=== PATIENT | female | born 1965 | race Caucasian/White ===

== ENCOUNTER → 2019-07-25 15:48 | Outpatient (CLI) | payer OTHER, SELFPAY ==
--- NOTE | ~2019-07-25 | MM_ITS ---
EXAMINATION: MM screening [facility] BI w tierra HISTORY: Screening mammogram TECHNIQUE: Craniocaudal and mediolateral oblique 3-D tomosynthesis images were obtained and synthetic 2-D images were generated. CAD analysis was submitted and interpreted. COMPARISON: 11/13/2017 bilateral digital screening mammogram 12/14/2015, 05/13/2015 complete right breast ultrasound 05/05/2015 bilateral diagnostic digital mammogram BREAST PARENCHYMAL COMPOSITION: There are scattered areas of fibroglandular density. FINDINGS: There is no evidence of suspicious mass, calcification, or architectural distortion to sugg est malignancy in either breast. There has been no suspicious interval change. IMPRESSION: 1. No mammographic evidence of malignancy. 2. Recommend routine screening mammography in one year. BI-RADS Category 1: Negative Reviewed, dictated and finalized at location A.
== END ==
PROVIDERS: PCP Internal Medicine; Visit Provider Obstetrics & Gynecology
DX: Z12.31 Encounter for screening mammogram for malignant neoplasm of breast (principal)
CPT/HCPCS: 77063; 77067

== ENCOUNTER 2020-01-02 13:01 | Emergency (ER) | payer OTHER, SELFPAY ==
[2020-01-02 13:20] VITALS: BP 144/82; PULSE 72; RESP 20; TEMP 36.9; O2SAT 99
--- NOTE | 2020-01-02 13:22 | ED.WOUNDLAC ---
HPI - Wound/Laceration General Chief Complaint: Wound/Laceration Stated Complaint: laceration Time Seen by Provider: 01/02/20 13:20 Source: patient Mode of arrival: ambulatory Limitations: no limitations History of Present Illness HPI narrative: Terrie Andre is a 54 yo female with PNH of hypertension, high cholesterol, with a laceration to distal L 5th finger, palmar side, just before arrival. No pain, some active bleeding. Patient also needs a tetanus vaccine Related Data Home Medications Medication Instructions Recorded Confirmed amlodipine 2.5 mg PO DAILY 01/02/20 01/02/20 ezetimibe 10 mg PO DAILY 01/02/20 01/02/20 montelukast 10 mg PO DAILY 01/02/20 01/02/20 Allergies Allergy/AdvReac Type Severity Reaction Status Date / Time erythromycin base Allergy Unknown RASH Verified 01/02/20 13:22 Sulfa (Sulfonamide Allergy Unknown Unknown Verified 01/02/20 13:22 Antibiotics) tetracycline Allergy Unknown RASH Verified 01/02/20 13:22 Review of Systems Review of Systems: Narrative: CONSTITUTIONAL: Denies fever, chills, sweats. EYES: Denies visual changes, redness, discharge. ENT: Denies rhinorrhea, congestion, sore throat, otalgia. CARDIOVASCULAR: Denies chest pain, palpitations, edema. RESPIRATORY: Denies dyspnea, wheezing, cough GASTROINTESTINAL: Denies abdominal pain, nausea, vomiting, diarrhea. GENITOURINARY: Denies dysuria, hematuria, abnormal discharge SKIN: Denies rash or itching. NEUROLOGIC: Denies numbness, or focal weakness. PSYCHIATRIC: Denies anxiety or depression. Laceration to fifth left finger PMFSH Past Medical History Medical History High cholesterol Hypertension Family History Family History Mother Diabetes mellitus Family history of hypercholesterolemia Hypertension Family history of malignant neoplasm of cervix Grandparent Diabetes mellitus Carcinoma of colon Sibling Family history of hypercholesterolemia Hypertension Other Family history of malignant neoplasm of breast Social History Social History Smoking status: Former smoker Smoking end date: 04/16/94 Alcohol intake: current Substance use type: marijuana Comments At time of signature, I agree with nursing past medical, surgical, social and family history. There is no relevant family history pertinent to the presenting complaint. Pt is here for injury- BP is elevated - will follow up with PCP Exam Narrative: Exam Narrative: GENERAL: This is a well-nourished, well-developed patient, in mild distress. HEAD: normocephalic, atraumatic. EYES: Sclera clear/white. Vision is grossly intact. EARS: External ears normal, Hearing grossly intact. NOSE: External nose normal without nasal discharge, nares without redness, no rhinorrhea. THROAT: Mucous membranes moist, NECK: Neck supple, CARDIOVASCULAR: Regular rate and rhythm without murmurs, gallops, or rubs. RESPIRATORY: Clear to auscultation. Breath sounds equal bilaterally. No wheezes, rales, or rhonchi. GASTROINTESTINAL: Abdomen soft, non-tender, SKIN: warm, intact with no suspicious lesions or rash, good texture and turgor. Serration above ENT about 2 cm in length of the left fifth finger on palmar side, moderate bleeding NEURO: awake, alert, and oriented to person, place and time. There were no obvious focal neurologic abnormalities. Steady gait EXTREMITIES: Normal range of motion. BACK: Nontender without deformity Course Course Emergency Course: Laceration repair Given tetanus because it is been longer than 5 years since last tetanus shot Cleaned and sutured given directions on care of wound Remove sutures in 7 days Vital Signs Vital signs: Vital Signs Temperature 98.4 F 01/02/20 13:20 Pulse Rate 72 01/02/20 13:20 Respiratory Rate 20 01/02/20 13:20 Blood Pressure 144/82 H
[2020-01-02] MEDS: TETANUS,DIPHTHERIA,AC PERTUSSIS ADULT (0.5 ML) BOOSTRIX IM (13:37)
== END 2020-01-02 14:00 | disposition home or self-care (01) ==
PROVIDERS: Emergency Provider Nurse Practitioner; PCP Internal Medicine
DX: S61.217A Laceration without foreign body of left little finger without damage to nail, initial encounter (principal); X58.XXXA Exposure to other specified factors, initial encounter; Z23 Encounter for immunization; Z87.891 Personal history of nicotine dependence; E78.00 Pure hypercholesterolemia, unspecified; I10 Essential (primary) hypertension
CPT/HCPCS: 12001; 90471; 90715; 99212; G0463

== ENCOUNTER → 2023-01-31 14:19 | Outpatient (CLI) | payer OTHER, SELFPAY ==
--- NOTE | ~2023-01-31 | MM_ITS ---
EXAMINATION: MM screening [facility] BI w tierra HISTORY: Screening TECHNIQUE: Craniocaudal and mediolateral oblique 3-D tomosynthesis images were obtained and synthetic 2-D images were generated. CAD analysis was submitted and interpreted. COMPARISON: Comparison to multiple prior studies sequentially, with oldest reviewed study dated 01/15. BREAST PARENCHYMAL COMPOSITION: There are scattered areas of fibroglandular density. FINDINGS: There is no evidence of suspicious mass, calcification, or architectural distortion to sugg est malignancy in either breast. There has been no suspicious interval change. IMPRESSION: 1. No mammographic evidence of malignancy. 2. Recommend routine screening mammography in one year. BI-RADS Category 1: Negative Reviewed, dictated and finalized at location A.
== END ==
PROVIDERS: PCP Internal Medicine; Visit Provider Obstetrics & Gynecology
DX: Z12.31 Encounter for screening mammogram for malignant neoplasm of breast (principal)
CPT/HCPCS: 77063; 77067

== ENCOUNTER 2024-07-18 00:49 | Day surgery (SDC) | payer OTHER, SELFPAY ==
[2024-07-14 09:16] VITALS: BMI 22.8
--- NOTE | 2024-07-17 13:52 | P.PNAN_ITS ---
Anes - Initial Pre Proc Eval Procedure: Operation Date: 07/18/24 11:00 Proposed Procedures p Screening Colonoscopy - Morgan Fierro MD Date/Time: 07/17/24 13:52 Surgeon: Morgan Fierro MD Pre Op Diagnosis: Screening Patient Data Age: 59 Gender: F Height: 1.7 m Weight: 66 kg Allergies Allergy/AdvReac Type Severity Reaction Status Date / Time ezetimibe Allergy Intermediate hives Verified 07/18/24 09:32 erythromycin base Allergy Unknown RASH Verified 07/18/24 09:32 Sulfa (Sulfonamide Allergy Unknown Unknown Verified 07/18/24 09:32 Antibiotics) tetracycline Allergy Unknown RASH Verified 07/18/24 09:32 Home Medications ?Medication ?Instructions ?Recorded ?Confirmed ?Type No Home Medications 02/13/24 07/14/24 History Patient hx anesthesia problems: none Family hx anesthesia problems: none Results Review: All pre-operative results and documents have been reviewed as part of the pre- operative evaluation. [facility] Past Medical History Medical History (Updated 07/17/24 @ 13:52 by Adam Yip DO) IBS (irritable bowel syndrome) Chronic rhinitis High cholesterol Surgical History Surgical History (Updated 02/13/24 @ 17:24 by Lexi Mclaughlin MD) Hx of appendectomy H/O: hysterectomy Family History Family History Mother Diabetes mellitus Family history of hypercholesterolemia Hypertension Family history of malignant neoplasm of cervix Grandparent Diabetes mellitus Carcinoma of colon Sibling Family history of hypercholesterolemia Hypertension Other Family history of malignant neoplasm of breast Social History Social History (Updated 02/13/24 @ 16:44 by Rainer Dunn MA) Years smoked: 1 Smoking status: Former smoker Tobacco type: e-cigarettes/vaping Smoking end date: 04/16/94 Alcohol intake: never Alcohol use details: socially Substance use: current Substance use type: marijuana Do You Feel Safe in your Home?: Yes Lack of Transportation: No Lack of Food: Never True Current Housing: I Have Housing Concerned About Future Housing: No Difficulty Paying Gas/Electric Bills: No Difficulty Paying for Meds: No Currently Unemployed: No Education: High School Diploma/GED Difficulty w/ Childcare or Family Care: No Living arrangements: with family Occupation/Education: occupation 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[employer] Gender identity (if verbalized by the patient): Female Sexual Orientation (if Verbalized by the Patient): Straight or Heterosexual Spiritual care concerns: No Anes - Eval Final PreProcedure Day of Procedure 07/17/24 13:52 Patient weight: normal Heart: regular rate and rhythm Lungs: clear to auscultation and normal air movement Airway: Mallampati scale class II Neurological: alert and oriented Last oral intake: >/= 8 hours ASA classification: II Emergent: no Anesthetic plan: proceed Anesthesia type and monitoring: general GIVS and standard monitoring Results Review: All pre-operative results and documents have been reviewed as part of the pre- operative evaluation. Informed Consent: The patient's anesthetic plan and its attendant risks and benefits were discus sed with the patient/family/POA. Questions were solicited and answers provided to the satisfaction of the patient/family/POA.
--- OUTSIDE RECORDS SUMMARY | 2024-07-18 00:52 | XMS_ITS | Clinical Summary ---
Author Organization [facility] Address [address] [place] [address] Phone Care Team Providers Care English Language Arts Teacher Name Role Phone Abbey Lewis MD Primary Care Provider Allergies No known active allergies Medications IBUPROFEN ORALIndications: Abnormal mammogram Take by mouth. Active Active Problems Patient Care Coordination No te Formatting of this note migh t be different from the original. Primary Care: No primary provider on file. Referring Provider: Pura Ga [address] [place] [address] [address] [place] [address] Other: Problem Noted Date Diagnosed Date Abnormal mammogram 11/28/2010 IBS (irritable bowel syndrome) Family History Medical History Relation Name Comments Breast Cancer Maternal Aunt Colon Cancer Maternal Grandmother Cancer Neg Hx Ovarian Cancer Neg Hx Relation Name Status Comments Maternal Aunt Maternal Grandmother Social History Tobacco Use Types Packs/Day Years Used Date Smoking Tobacco: Former Smokeless Tobacco: Never Alcohol Use Standard Drinks/Week Comments Yes 0 (1 standard drink = 0.6 oz pur e alcohol) rare Comments No Sex and Gender Information Value Date Recorded Sex Assigned at Not on file 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 Gender Identity Not on file Sexual Orientation Not on file Last Filed Vital Signs Vital Sign Reading Time Taken Comments Blood Pressure 106/74 06/20/2011 2:01 PM SALES AND MARKETING AGENT Pulse - - Temperature - - Respiratory Rate - - Oxygen Saturation - - Inhaled Oxygen Concentration - - Weight 73.9 kg (163 lb) 11/28/2010 1:57 PM CDT Height 170.2 cm (5' 7 ) 06/20/2011 2:01 PM SALES AND MARKETING AGENT Body Mass Index 25.53 11/28/2010 1:57 PM CDT Plan of Treatment Health Maintenance Due Date Last Done Comments DTAP/TDAP/TD VACCINES (1 - Tdap) 1986 HEPATITIS B VACCINES (1 of 3 - 19+ 3-dose series) 1986 HPV/Cotest (21-29) 1988 PAP SMEAR 1988 CERVICAL CANCER SCREENING 1997 HPV/Cotest (30-65) 1997 PAP SMEAR 1997 BREAST CANCER SCREENING 11/25/2011 11/25/19 11, 11/11/2010, 02/12/2008 COLORECTAL SCREENING 2012 Colorectal Cancer Screening 2012 FIT-DNA Q 3 years 2012 FIT/FOBT Q 1 year 2012 Flex Sig/CT Colonography Q 5 years 2012 ZOSTER VACCINE (1 of 2) 2017 INFLUENZA VACCINE (#1) 2023 PNEUMOCOCCAL VACCINE 0-49 YEARS Aged Out No longer eligible b ased on patient's age to complete this topic Procedures Procedure Name Priority Date/Time Associated Diagnosis Comments MAMMO DIAGNOSTIC UNI LEFT W OR WO CAD Routine 11/24/2010 from Last 3 Months or Most Recently Relevant to Health Maintenance Results * MAMMO DIGITAL DIAG UNI LEFT (11/24/2010) Anatomical Region Laterality Modality Breast Left Other Pura Ga MD MAMMO ORDERABLES Final R esult from Last 3 Months or Most Recently Relevant to Health Maintenance Care Teams English Language Arts Teacher Relationship Specialty Start Date End Date Abbey Lewis MD [address] [place] [address] PCP - General Family Practice 06/19/11
--- OUTSIDE RECORDS SUMMARY | 2024-07-18 00:52 | XMS_ITS | Clinical Summary ---
Author Organization [facility] [place] [address] Address [address] [place] [address] Care Team Providers Care Back Tender Insulation Board Name Role Phone Ac Isaac MD Primary Care Provider [phone] Allergies Active Allergy Reactions Criticality Noted Date Comments Atorvastatin Itching,Cough,Flushi ng (skin) Medium 10/21/2018 Sulfa (Sulfonamide Antibiotics) Hives Medium 06/07/2017 Medications montelukast (SINGULAIR) 10 mg tablet Take 10 mg by mouth daily. 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 Dizziness 07/16/2017 Stable angina 06/07/2017 Abnormal stress test 06/07/2017 Chronic fatigue 06/07/2017 Family history of premature CAD 06/07/2017 GAMEZ (dyspnea on exertion) 06/07/2017 Tobacco abuse 06/07/2017 Surgical History Surgery Date Site/Laterality Comments APPENDECTOMY HYSTERECTOMY OOPHORECTOMY Medical History Medical History Date Comments Heart murmur Diverticulitis Family History Medical History Relation Name Comments Heart attack Father Diabetes Mother Relation Name Status Comments Brother Alive Father (Age 34) Mother Alive Social History Tobacco Use Types Packs/Day Years Used Date Smoking Tobacco: Never Smokeless Tobacco: Never Alcohol Use Standard Drinks/Week Comments No 0 (1 standard drink = 0.6 oz pur e alcohol) Personal Safety Answer Date Recorded Getting School Help Needed Not on file 06/29 Comments Unknown Sex and Gender Information Value Date Recorded Sex Assigned at Not on file 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 Gender Identity Not on file Sexual Orientation Not on file Obstetrics History Last Filed Vital Signs Vital Sign Reading Time Taken Comments Blood Pressure 112/66 11/03/2019 9:09 AM CDT Pulse 91 11/03/2019 9:09 AM CDT Temperature - - Respiratory Rate - - Oxygen Saturation 98% 11/03/2019 9:09 AM CDT Inhaled Oxygen Concentration - - Weight 76.2 kg (168 lb) 11/03/2019 9:09 AM CDT Height 171.5 cm (5' 7.5 ) 11/03/2019 9:09 AM CDT Body Mass Index 25.92 11/03/2019 9:09 AM CDT Plan of Treatment Not on file Insurance [facility]PPO Address: [facility] [address] [place] [address] Care Teams Back Tender Insulation Board Relationship Specialty Start Date End Date Ac Isaac MD [phone] (work) PCP - General Internal Medicine 06/06/17
--- OUTSIDE RECORDS SUMMARY | 2024-07-18 00:53 | XMS_ITS | Data Portability ---
Author Organization [facility] [place] Address [address] [place] [address] Care Team Providers Care Lvn Name Role Phone MARTINEZ DYAN Primary Care Provider Assessment Encounter Date Assessment Date Assessment LastModified by Organization Details LastModified Time 05/14/2024 05/14/2024 adult health exjohanna seay Blood work. Obtain old records. Find out where she is on screenings and immunizations. Medrol Dosepak usually works for her back we will prescribe that. There is a vague history of some rheumatological issues she did see Dr. Edge at [facility] she was told at 1 time that she may have a connective tissue disease we will see me in 6 months sooner if her back does not get better. Advised to stay up-to-date on screenings and immunizations [id number] Not available 05/17/2024 22:13:54 Plan of Treatment Reminders Order Date Submit Date Provider Last Modified By Organization Details Last Modified Time Details Appointments ANY 15 2024 09:15A Rashmi Isaac MD Not available Not available Not available Lab CBC w/ auto diff 2024 025 [facility], [address] [place] [address], [id number], 05/31/2024 11:11:58 lipid panel, serum 2024 025 [facility], [address] [place] [address], [id number], 05/31/2024 11:11:57 CMP, serum or plasma 2024 025 [facility], [address] [place] [address] 2, [place], [address], 05/31/2024 11:11:56 Referral None recorded. Procedures colonosco py screening (PROC) 2024 025 [facility], [address], [address], [place], [address], 07/15/2024 10:19:47 Surgeries None recorded. Imaging None recorded. Medication Orders Medrol (Vinicio) 4 mg tablets in a dose pack 2024 025 [id number], [address], [place], [place], [id number], 05/16/2024 10:36:55 Patient TargetsNo targets recorded. Patient InstructionsNo instructions recorded. Reason for Referral None Reported. Results Created Date Observation Date Name Description Value Unit Range Abnormal Flag Note LastModifiedBy Organization Detail LastModifiedTime 05/30/1905/31/2024 CMP14 glucose 79 mg/dL 70-99 Not Availabl e [facility] ([facility]) [address] [place], [address], 05/31/2024 11:11:56 05/30/1905/31/2024 CMP14 BUN 11 mg/dL 6-24 Not Available [facility] ([facility]) [address] [place], [address], 05/31/2024 11:11:56 05/30/1905/31/2024 CMP14 creatinine 0.84 mg/dL 0.57-1 .00 Not Available [facility] ([facility]) [address] [place], [address], 05/31/2024 11:11:56 05/30/1905/31/2024 CMP14 eGFR 81 mL/mi n/1.7 3 >59 Not Available [facility] ([facility]) [address] [place], [address], 05/31/2024 11:11:56 05/30/19 25 05/31/2024 CMP14 BUN/creatini ne ratio 13 9-23 Not Available [facility] ([facility]) [address] [facility] [place], [address], 05/31/2024 11:11:56 05/30/19 25 05/31/2024 CMP14 sodium 139 mmol/ L 134-14 4 Not Available [facility] ([facility]) [address] [place], [address], 05/31/2024 11:11:56 05/30/19 25 05/31/2024 CMP14 potassium 4.5 mmol/ L 3.5-5. 2 Not Available [facility] ([facility]) [address] [place], [address], 05/31/2024 11:11:56 05/30/19 25 05/31/2024 CMP14 chloride 101 mmol/ L 96-106 Not Available [facility] ([facility]) [address] [place], [address], 05/31/2024 11:11:56 05/30/19 25 05/31/2024 CMP14 carbon dioxide, total 27 mmol/ L 20-29 Not Available [facility] ([facility]) [address] [place], [address], 05/31/2024 11:11:56 05/30/19 25 05/31/2024 CMP14 calcium 9.3 mg/dL 8.7-10 .2 Not Available [facility] ([facility]) [address] [place], [address], 05/31/2024 11:11:56 05/30/19 25 05/31/2024 CMP14 protein, total 6.4 g/dL 6.0-8. 5 Not Available [facility] ([facility]) [address] [place], [address], 05/31/2024 11:11:56 05/30/19 25 05/31/2024 CMP14 albumin 4.2 g/dL 3.8-4. 9 Not Available [facility] ([facility]) [address] [place], [address], 05/31/2024 11:11:56 05/30/19 25 05/31/2024 CMP14 globulin, total 2.2 g/dL 1.5-4. 5 Not Available [facility] ([facility]) [address] [place], [address], 05/31/2024 11:11:56 05/30/19 25 05/31/2024 CMP14 bilirubin, total 0.3 mg/dL 0.0-1. 2 Not Available [facility] ([facility]) [address] [place], [address], 05/31/2024 11:11:56 05/30/19 25 05/31/2024 CMP14 alkaline phosphatase 81 IU/L 44-121 Not Available [facility] ([facility]) [address] [place], [address], 05/31/2024 11:11:56 05/30/19 25 05/31/2024 CMP14 AST (SGOT) 14 IU/L 0-40 Not Avail able [facility] ([facility]) [address] [place], [address], 05/31/2024 11:11:56 05/30/19 25 05/31/2024 CMP14 ALT (SGPT) 21 IU/L 0-32 Not Avail able [facility] ([facility]) [address] [place], [address], 05/31/2024 11:11:56 05/30/19 25 05/31/2024 LIPID PANEL cholesterol, total 210 mg/dL 100-19 9 above high normal Not Available [facility] ([facility]) [address] [facility] [place], [address], 05/31/2024 11:11:57 05/30/19 25 05/31/2024 LIPID PANEL triglyceride s 226 mg/dL 0-149 above high normal Not Available [facility] ([facility]) [address] [facility] [place], [address], 05/31/2024 11:11:57 05/30/19 25 05/31/2024 LIPID PANEL HDL cholesterol 37 mg/dL >39 below low normal Not Available [facility] ([facility]) [address] [facility] [place], [address], 05/31/2024 11:11:57 05/30/19 25 05/31/2024 LIPID PANEL VLDL cholesterol yannick 41 mg/dL 5-40 above high normal Not Available [facility] ([facility]) [address] [place], [address], 05/31/2024 11:11:57 05/30/19 25 05/31/2024 LIPID PANEL LDL chol calc ([facility]) 132 mg/dL 0-99 above high normal Not Available [facility] ([facility]) [address] [place], [address], 05/31/2024 11:11:57 05/30/19 25 05/31/2024 CBC WITH DIFFE RENTI AL/PL ATELE T WBC 8.6 x10e3 /uL 3.4-10 .8 Not Available [facility] ([facility]) [address] [place], [address], 05/31/2024 11:11:58 05/30/19 25 05/31/2024 CBC WITH DIFFE RENTI AL/PL ATELE T RBC 3.88 x10e6 /uL 3.77-5 .28 Not Available [facility] ([facility]) [address] [place], [address], 05/31/2024 11:11:58 05/30/19 25 05/31/2024 CBC WITH DIFFE RENTI AL/PL ATELE T hemoglobin 13.4 g/dL 11.1-1 5.9 Not Available [facility] ([facility]) [address] [place], [address], 05/31/2024 11:11:58 05/30/19 25 05/31/2024 CBC WITH DIFFE RENTI AL/PL ATELE T hematocrit 37.9 % 34.0-4 6.6 Not Available [facility] ([facility]) [address] [place], [address], 05/31/2024 11:11:58 05/30/19 25 05/31/2024 CBC WITH DIFFE RENTI AL/PL ATELE T MCV 98 fL 79-97 above high normal Not Available [facility] ([facility]) [address] [place], [address], 05/31/2024 11:11:58 05/30/19 25 05/31/2024 CBC WITH DIFFE RENTI AL/PL ATELE T MCH 34.5 pg 26.6-3 3.0 above high normal Not Available [facility] ([facility]) [address] [place], [address], 05/31/2024 11:11:58 05/30/19 25 05/31/2024 CBC WITH DIFFE RENTI AL/PL ATELE T MCHC 35.4 g/dL 31.5-3 5.7 Not Available [facility] ([facility]) [address] [place], [address], 05/31/2024 11:11:58 05/30/19 25 05/31/2024 CBC WITH DIFFE RENTI AL/PL ATELE T RDW 12.6 % 11.7-1 5.4 Not Available [facility] ([facility]) [address] [place], [address], 05/31/2024 11:11:58 05/30/19 25 05/31/2024 CBC WITH DIFFE RENTI AL/PL ATELE T platelets 330 x10e3 /uL 150-45 0 Not Available [facility] ([facility]) [address] [facility], [place], [address], 05/31/2024 11:11:58 05/30/19 25 05/31/2024 CBC WITH DIFFE RENTI AL/PL ATELE T neutrophils 39 % notest ab. Not Available [facility] ([facility]) [address] [facility], [place], [address], 05/31/2024 11:11:58 05/30/19 25 05/31/2024 CBC WITH DIFFE RENTI AL/PL ATELE T lymphs 49 % notest ab. Not Available [facility] ([facility]) [address] [facility], [place], [address], 05/31/2024 11:11:58 05/30/19 25 05/31/2024 CBC WITH DIFFE RENTI AL/PL ATELE T monocytes 6 % notest ab. Not Available [facility] ([facility]) [address] [place], [address], 05/31/2024 11:11:58 05/30/19 25 05/31/2024 CBC WITH DIFFE RENTI AL/PL ATELE T eos 3 % notest ab. Not Available [facility] ([facility]) [address] [place], [address], 05/31/2024 11:11:58 05/30/19 25 05/31/2024 CBC WITH DIFFE RENTI AL/PL ATELE T basos 1 % notest ab. Not Available [facility] ([facility]) [address] [facility], [place], [address], 05/31/2024 11:11:58 05/30/19 25 05/31/2024 CBC WITH DIFFE RENTI AL/PL ATELE T neutrophils (absolute) 3.4 x10e3 /uL 1.4-7. 0 Not Available [facility] ([facility]) [address] [facility], [place], [address], 05/31/2024 11:11:58 05/30/19 25 05/31/2024 CBC WITH DIFFE RENTI AL/PL ATELE T lymphs (absolute) 4.2 x10e3 /uL 0.7-3. 1 above high normal Not Available [facility] ([facility]) [address] [facility], [place], [address], 05/31/2024 11:11:58 05/30/19 25 05/31/2024 CBC WITH DIFFE RENTI AL/PL ATELE T monocytes(ab solute) 0.5 x10e3 /uL 0.1-0. 9 Not Available [facility] ([facility]) [address] [place], [address], 05/31/2024 11:11:58 05/30/19 25 05/31/2024 CBC WITH DIFFE RENTI AL/PL ATELE T eos (absolute) 0.3 x10e3 /uL 0.0-0. 4 Not Available [facility] ([facility]) [address] [facility], [place], [address], 05/31/2024 11:11:58 05/30/19 25 05/31/2024 CBC WITH DIFFE RENTI AL/PL ATELE T baso (absolute) 0.1 x10e3 /uL 0.0-0. 2 Not Available [facility] ([facility]) [address] [place], [address], 05/31/2024 11:11:58 05/30/19 25 05/31/2024 CBC WITH DIFFE RENTI AL/PL ATELE T immature granulocytes 2 % notest ab. Not Available [facility] ([facility]) [address] [place], [address], 05/31/2024 11:11:58 05/30/19 25 05/31/2024 CBC WITH DIFFE RENTI AL/PL ATELE T immature grans (abs) 0.2 x10e3 /uL 0.0-0. 1 above high normal (An eleva karan perce ntage of Immat ure Granu locyt es has not been found to be clini layne signi fican t as a sole clini yannick predi ctor of disea se. Does NOT inclu de bands or blast cells . Pregn abner assoc iated physi ologi yannick leuko cytos is may also show incre ased immat ure granu locyt es witho ut clini yannick signi fican ce.) Not Available [facility] ([facility]) [address] [facility], [place], [address], 05/31/2024 11:11:58 Result Notes None recorded. Problems Name Problem SNOMED Code Status Onset Date Resolution Date Notes Provider Name and Address Organization Details Recorded Time Low back pain 980393279 Active 2024 PERLA Melvin [facility] 15:22:27 Adult health examination Active 2024 PERLA Melvin [facility] 15:22:28 Problem Notes None recorded. Procedures Surgical History Date Name Laterality Status Provider Name and Address Organization Details Recorded Time Total hysterectomy completed PERLA Burnham [facility] 05/14/2024 13:00:44 Appendectomy completed Missy Tello MA [place] Mac[place] [facility] 05/14/2024 13:00:48 partial hysterectomy completed PERLA Burnham [facility] 05/14/2024 13:01:01 Imaging Results None recorded. Procedure Notes None recorded. Medical Equipment None Reported. Medications Not known to be on any medication Vitals Date Recorded Body height Body mass index (BMI) Body weight Heart rate Oxygen saturation Oxygen saturation in Arterial blood by Pulse oximetry Systolic blood pressure Diastolic blood pressure Provider Name and Address Organization Details Last Updated DateTime 5 170.18 cm 23.3 kg/m2 79745.8 3 g 90 /min 96 % 96 % 130 mm[Hg] 68 mm[Hg] PERLA Burnham [facility] 13:06:24 Social History Question Answer Notes LastModified by Organizat ion Details LastModified Time Tobacco Smoking Status Former Smoker Missy Tello MA null, [place] - [facility] 05/14/2024 12:59:59 Do You Have An Advance Directive? No Information n ot available 05/14/2024 What Is Your Level Of Alcohol Consumption? None Information not available 05/14/2024 Are You Blind Or Do You Have Difficulty Seeing? No Information n ot available 05/14/2024 What Is Your Level Of Caffeine Consumption? Heavy Information not available 05/14/2024 In The 14 Days Before Symptom Onset, Have You Had Close Contact With A Laboratory-confirm ed COVID-19 While That Case Was Ill? No Information n ot available 05/14/2024 In The 14 Days Before Symptom Onset, Have You Had Close Contact With A Person Who Is Under Investigation For COVID-19 While That Person Was Ill? No Information not available 05/14/2024 Have You Been To An Area Known To Be High Risk For COVID-19? No Information not available 05/14/2024 Are You Currently Employed? No Information not available 05/14/2024 Are You Deaf Or Do You Have Serious Difficulty Hearing? No Information not available 05/14/2024 What Type Of Diet Are You Following? REGULAR Information n ot available 05/14/2024 Are There Any Guns Present In Your Home? No Information not available 05/14/2024 What Was The Date Of Your Most Recent Tobacco Screening? 05/14/2024 Information not available 05/14/2024 What Is Your Current Pack Years? 10packyears Information not available 05/14/2024 What Is Your Relationship Status? Information not available 05/14/2024 Do You Use Your Seat Belt Or Car Seat Routinely? Yes Information not available 05/14/2024 Do You Have Smoke And Carbon Monoxide Detectors In Your Home? Yes Information not available 05/14/2024 How Much Tobacco Do You Smoke? 1 PPW Information not available 05/14/2024 Do You Feel Stressed (tense, Restless, Nervous, Or Anxious, Or Unable To Sleep At Night)? [id number] Information not available 05/14/2024 Do You Use Any Illicit Or Recreational Drugs? No Information not available 05/14/2024 Do You Use Sunscreen Routinely? Yes Information not available 05/14/2024 Has Tobacco Cessation Counseling Been Provided? No Information not available 05/14/2024 How Many Years Have You Smoked Tobacco? 10 Information not available 05/14/2024 Do You Or Have You Ever Used Any Other Forms Of Tobacco Or Nicotine? No Information not available 05/14/2024 Sex: Female Functional Status Question Answer Note LastModified by Organization D etails LastModified Time Are you able to care for yourself? Yes Information n ot available 05/14/2024 What is your exercise level? None Information not available 05/14/2024 Mental Status None recorded. Family History Relationship Description Onset Age of this Age Resolved Age Notes LastModified by Organization Details LastModified Time Father Alcohol abuse mebyma Not available 2024 12:56:15 Father Coronary arterioscler osis mebyma Not available 2024 12:56:41 Father Blood coagulation disorder 45 mebyma Not available 2024 12:56:56 Father Myocardial infarction mebyma Not available 05/14 12:59:19 Mother Depressive disorder mebyma Not available 2024 12:57:10 Mother Diabetes mellitus mebyma Not available 2024 12:57:41 Mother Hypercholest erolemia mebyma Not available 2024 12:58:17 Mother Migraine mebyma Not available 0 05/14/2024 12:59:08 Paternal Grandmother Diabetes mellitus mebyma Not available 2024 12:57:41 Paternal Uncle Diabetes mellitus mebyma Not available 2024 12:57:41 Paternal Uncle Diabetes mellitus mebyma Not available 2024 12:57:41 Paternal Uncle Diabetes mellitus mebyma Not available 2024 12:57:41 Paternal Aunt Malignant tumor of breast mebyma Not available 2024 12:58:43 Daughter Migraine mebyma Not available 05/14/2024 12:59:07 Medical History Condition Response Coronary Artery Disease N Atrial Fibrillation N High Blood Pressure N Thyroid Problems N Kidney or Bladder Problems N Depression N COPD N Blood Clots N GI Problems N Have you had a mammogram in the last yea r? N Skin Problems N Anemia N Heart Attack ([place]) N Diabetes N Anxiety Disorder N Muscle, Joint, or Bone Problems Y Seizures/Epilepsy N Have you had a colonoscopy in the last 1 0 years? N Acid Reflux (GERD) N Cancer N Stroke N Allergies N Asthma N High Cholesterol N Hepatitis N Liver Disease N Headaches Y Osteoporosis N Heart Failure N Gynecological HistoryNo gynecological history recorded. Obstetrics History GPAL:G 0 P 0 0 0 0 Past Encounters Encounter ID Performer Location Encounter Start Date Encounter Closed Date Diagnosis/Indication Diagnosis SNOMED-CT Code Diagnosis ICD10 Code Diagnosis Note [id number] Dyan Isaac MD [facility] (Adult Med) [address] [place] [phone] 05/14/2024 12:22:42 05/14/2024 13:30:28 Body mass index 20-24 - normal 668062880 Z68.23 Adult heal th examination 815068101 Z00.00 Low back pain 974826254 M54.50 Screening for malignant neoplasm of colon 701392105 Z12.11 Health Concerns Section Related Observation LastModified by Organization Detai ls LastModified Time None Recorded Concern Status LastModified by Organization Details LastModified Time None Recorded Advance Directives Directive N: Payers Encounter Date Sequence Insurance Name Policy Number Policy Dumont Covered Member ID Dumont Member ID Guarantor Name 05/14/2024 1 [facility] [id number] eTd Call Jes [id number] Terrie Jes Notes Date Note Type Note Provider Name and Address Organization Details Recorded Time 05/14/2024 text/html reestablishing c are back pain flare-up again meds none allergies none surgeries. Hysterectomy with both ovaries taken out appendectomy family history heart disease hypertension diabetes paternal aunt with breast cancer Dyan Isaac MD Attn: Accounting[address] [facility], [place], [address], [facility] 05/17/2024 22:14:18 OBGyn Episode No OBEpisode recorded.
--- OUTSIDE RECORDS SUMMARY | 2024-07-18 00:53 | XMS_ITS | Referral Summary ---
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
[2024-07-18 09:33] VITALS: BP 118/77; PULSE 98; RESP 19; TEMP 37.1; O2SAT 100
[2024-07-18] MEDS: LACTATED RINGERS 1,000 ML 150 ML IV CONT (09:40)
--- NOTE | 2024-07-18 10:08 | PM.IMHP ---
H&P: HPI History of Present Illness Date/Time: 07/18/24 10:08 Chief Complaint: screening colonoscopy Narrative: This is the patient's first colonoscopy after 15 years. There are no GI symptoms and there is no family history of colorectal cancer. Review of Systems Review of Systems: All systems reviewed & are unremarkable except as noted in HPI and below PMFSH Past Medical History Medical History (Updated 07/18/24 @ 10:09 by Morgan Fierro MD) IBS (irritable bowel syndrome) Chronic rhinitis High cholesterol Surgical History Surgical History (Updated 02/13/24 @ 17:24 by Lexi Mclaughlin MD) Hx of appendectomy H/O: hysterectomy Family History Family History Mother Diabetes mellitus Family history of hypercholesterolemia Hypertension Family history of malignant neoplasm of cervix Grandparent Diabetes mellitus Carcinoma of colon Sibling Family history of hypercholesterolemia Hypertension Other Family history of malignant neoplasm of breast Social History Social History (Updated 02/13/24 @ 16:44 by Rainer Dunn MA) Years smoked: 1 Smoking status: Former smoker Tobacco type: e-cigarettes/vaping Smoking end date: 04/16/94 Alcohol intake: never Alcohol use details: socially Substance use: current Substance use type: marijuana Do You Feel Safe in your Home?: Yes Lack of Transportation: No Lack of Food: Never True Current Housing: I Have Housing Concerned About Future Housing: No Difficulty Paying Gas/Electric Bills: No Difficulty Paying for Meds: No Currently Unemployed: No Education: High School Diploma/GED Difficulty w/ Childcare or Family Care: No Living arrangements: with family Occupation/Education: occupation 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 [employer] Gender identity (if verbalized by the patient): Female Sexual Orientation (if Verbalized by the Patient): Straight or Heterosexual Spiritual care concerns: No Meds Home Medications and Allergies Home Medications ?Medication ?Instructions ?Recorded ?Confirmed ?Type No Home Medications 02/13/24 07/14/24 History Allergies Allergy/AdvReac Type Severity Reaction Status Date / Time ezetimibe Allergy Intermediate hives Verified 07/18/24 09:32 erythromycin base Allergy Unknown RASH Verified 07/18/24 09:32 Sulfa (Sulfonamide Allergy Unknown Unknown Verified 07/18/24 09:32 Antibiotics) tetracycline Allergy Unknown RASH Verified 07/18/24 09:32 Vital Signs Vital Signs - 24 hr 07/18/24 09:33 Temperature 98.7 F Pulse Rate 98 Respiratory Rate 19 Blood Pressure 118/77 Pulse Oximetry 100 Oxygen Delivery Room Air Exam Const: General: cooperative and healthy appearing Resp: Effort & Inspection: normal respiratory effort and able to speak in complete sentences Auscultation: clear to auscultation bilaterally Cardio: Rate: regular rate Rhythm: regular rhythm GI: Inspection: normal to inspection GI Palp: No No hepatosplenomegaly present Auscultation: normal bowel sounds Rectal Exam: deferred Skin: General skin exam: normal color Psych: Appearance: grossly normal Mental Status: mental status grossly normal Assessment and Plan Assessment and plan (1) Encounter for screening colonoscopy: Code(s): Z12.11 - Encounter for screening for malignant neoplasm of colon Status: Acute Assessment and Plan: The patient is deemed a good candidate for the procedure. Consent signed. Will proceed.
[2024-07-18 10:32] VITALS: BP 106/61; PULSE 61; RESP 22; O2SAT 100
[2024-07-18 10:42] VITALS: BP 111/69; PULSE 60; RESP 16; O2SAT 100
[2024-07-18 10:52] VITALS: BP 128/81; PULSE 61; RESP 20; O2SAT 100
== END 2024-07-18 11:03 | disposition home or self-care (01) ==
PROVIDERS: PCP Internal Medicine; Referring Provider Internal Medicine; Visit Provider Internal Medicine Gastroenterology
PROC: 0DJD8ZZ Inspection of Lower Intestinal Tract, Via Natural or Artificial Opening Endoscopic (ICD-10-PCS; CPT 45378; principal; 2024-07-18 11:00)
DX: Z12.11 Encounter for screening for malignant neoplasm of colon (principal); K57.30 Diverticulosis of large intestine without perforation or abscess without bleeding; F12.90 Cannabis use, unspecified, uncomplicated; Z87.891 Personal history of nicotine dependence
CPT/HCPCS: 45378; J2704; J7120

== ENCOUNTER 2024-09-02 15:33 | Outpatient (CLI) | payer OTHER, SELFPAY ==
--- NOTE | ~2024-09-02 | CT_ITS ---
CT of the Abdomen and Pelvis: Indication: Abdominal pain Technique: 2.5 mm axial scans were obtained through the abdomen and pelvis following intravenous adm inistration of 100 cc of Omnipaque 350. Dose reduction technique was used on this scan by utilizing a utomated exposure control and iterative reconstruction technique. The dose-length product (DLP) was 3 92.66 mGy-cm. Findings: Scans through the lung bases are unremarkable. The liver, pancreas, gallbladder, adrenals and kidneys are within normal limits. Several splenic cyst s are noted. No evidence of aortic aneurysm. No lymphadenopathy. There is wall thickening of the sigmoid colon with diverticular disease. No definite acute inflammato ry change. Images through the pelvis were performed. Urinary bladder unremarkable. No pelvic mass seen. No ascit es. Impression: Muscular hypertrophy of the sigmoid colon due to underlying diverticulosis versus mild acute sigmoid diverticulitis. Correlate with clinical symptomatology. No obstruction, abscess, or free air. Reviewed, dictated and finalized at location . Impression: Muscular hypertrophy of the sigmoid colon due to underlying diverticulosis vers us mild acute sigmoid diverticulitis. Correlate with clinical symptomatology. N o obstruction, abscess, or free air.
== END 2024-09-02 15:34 | disposition home or self-care (01) ==
LOC: MICIMG 15:34
PROVIDERS: PCP Internal Medicine; Visit Provider Internal Medicine
DX: R10.9 Unspecified abdominal pain (principal); R93.3 Abnormal findings on diagnostic imaging of other parts of digestive tract
CPT/HCPCS: 74177; Q9967

== ENCOUNTER 2024-10-14 15:45 | Outpatient (CLI) | payer OTHER, SELFPAY ==
--- NOTE | ~2024-10-14 | MM_ITS ---
EXAMINATION: MM screening [facility] BI w [facility] HISTORY: Screening mammogram TECHNIQUE: Craniocaudal and mediolateral oblique 3-D tomosynthesis images were obtained and synthetic 2-D images were generated. CAD analysis was submitted and interpreted. COMPARISON: 01/31/2023, 08/25/2020, 07/25/2019 BREAST PARENCHYMAL COMPOSITION:Not Dense. There are scattered areas of fibroglandular density. FINDINGS: No suspicious mass, calcification, or architectural distortion are identified in either delonte ast to suggest malignancy. There has been no suspicious interval change. IMPRESSION: No mammographic evidence of malignancy. Recommend routine screening mammography in one year. BI-RADS Category 1: Negative Reviewed, dictated and finalized at location .
== END 2024-10-14 15:46 | disposition home or self-care (01) ==
PROVIDERS: PCP Obstetrics & Gynecology; Visit Provider Obstetrics & Gynecology
DX: Z12.31 Encounter for screening mammogram for malignant neoplasm of breast (principal)
CPT/HCPCS: 77063; 77067

== ENCOUNTER 2025-01-16 14:30 | Outpatient (CLI) | payer OTHER, SELFPAY ==
--- NOTE | 2025-01-16 | ECHO_ITS ---
Patient Info Name: Terrie Andre Age: 59 years : 1965 Gender: Female Ht: 67 in Wt: 158 lbs BSA: 1.85 m2 HR: 71 bpm BP: 140 / 83 mmHg Heart Rhythm: Sinus Rhythm Technical Quality: Fair Exam Date: 01/16/2025 2:55 PM Patient Status: O Admit Date: 01/16/2025 Exam Type: CA echo doppler color flow Complete two-dimensional, color flow and Doppler transthoracic echocardiogram is performed. Valve Maker: Bri Fuller Attending Provider: Ac Isaac Summary 1. Complete two-dimensional, color flow and Doppler transthoracic echocardiogram is performed. 2. Left ventricular chamber dimension is normal. 3. Left ventricular systolic function is normal, estimated at 65-70. 4. The left ventricular diastolic function is grade I diastolic dysfunction. 5. E/e' 12 is mildly elevated. 6. There is mild aortic valve sclerosis. 7. No pulmonary hypertension, estimated pulmonary arterial systolic pressure is 32 mmHg. Left Ventricle E/e' 12 is mildly elevated. Left ventricular chamber dimension is normal. Left ventricular systolic function is normal, estimated at 65-70. The left ventricular diastolic function is grade I diastolic dysfunction. Right Ventricle Right ventricular chamber dimension is normal. Right ventricular systolic function is normal and with normal TAPSE 2.0 cm. Left Atria Left atrial chamber dimension is normal. Right Atria Right atrial chamber dimension is normal. Aortic Valve The aortic valve is trileaflet. There is mild aortic valve sclerosis. There is no aortic valve stenosis. There is no aortic valve regurgitation. Pulmonic Valve There is no pulmonic regurgitation. Mitral Valve There is no mitral valve stenosis. There is no mitral valve regurgitation. Tricuspid Valve There is no tricuspid valve regurgitation. No pulmonary hypertension, estimated pulmonary arterial systolic pressure is 32 mmHg. Pericardium/Pleural There is no pericardial effusion. Inferior Vena Cava Normal inferior vena cava with >50% collapse upon inspiration consistent with normal right atrial pressure, 5 mmHg. Aorta The aortic root size at the sinus of Valsalva is normal. Left Ventricular Outflow Tract Name Value Normal LVOT 2D LVOT Diameter 2.0 cm LVOT Doppler LVOT Peak Velocity 170 cm/s LVOT Peak Gradient 12 mmHg LVOT Mean Gradient 6 mmHg LVOT VTI 35 cm LVOT VTI/AV VTI Ratio 0.8 LVOT Stroke Volume 105 ml Mitral Valve Name Value Normal MV Diastolic Function MV E Peak Velocity 76 cm/s MV A Peak Velocity 85 cm/s MV E/A 0.9 MV Decel Time (PW) 165 ms Tricuspid Valve Name Value Normal TV Regurgitation Doppler TR Peak Velocity 259 cm/s TR Peak Gradient 12 mmHg Estimated PAP/RSVP RA Pressure 5 mmHg <=5 PA Systolic Pressure 32 mmHg <36 RV Systolic Pressure 32 mmHg <36 Aorta Name Value Normal Ascending Aorta Ao Root Diameter (MM) 2.1 cm Ao Root Diam Index (MM) 1.2 cm/m2 Aortic Valve Name Value Normal AV Doppler AV Peak Velocity 208 cm/s AV Peak Gradient 17 mmHg AV Mean Gradient 9 mmHg AV VTI 43 cm AV Area (Cont Eq VTI) 2.5 cm2 >=3.0 AV Area (Cont Eq Hua) 2.5 cm2 AV DI (Hua) 0.82 AV Regurgitation 2D LVOT Area 3.0 cm2 Ventricles Name Value Normal LV Dimensions 2D/MM IVS Diastolic Thickness (2D) 0.7 cm 0.6-1.0 LVID Diastole (2D) 4.2 cm 3.8-5.2 LVIW Diastolic Thickness (2D) 0.7 cm 0.6-0.9 LVID Systole (2D) 2.4 cm 2.2-3.5 LVOT Diameter 2.0 cm LV Mass (2D Cubed) 88.42 g 67.00-162.00 LV Mass Index (2D Cubed) 48 g/m2 43-95 Relative Wall Thickness (2D) 0.35 <=0.42 LV Fractional Shortening/Ejection Fraction 2D/MM LV Fractional Shortening (2D) 42 % 27-45 LV EF (2D Teichholz) 74 % LV Diastolic Volume (4C MOD) 67 ml LV EF (4C MOD) 72 % LV Diastolic Volume (2C MOD) 70 ml LV EF (2C MOD) 70 % LV Diastolic Volume (BP MOD) 70 ml 46-106 LV Diastolic Volume Index (BP MOD) 38 ml/m2 29-61 LV Systolic Volume (BP MOD) 21 ml 14-42 LV Systolic Volume Index (BP MOD) 11 ml/m2 8-24 LV EF (BP MOD) 71 % 54-74 LV Diastolic Length (4C) 7.4 cm LV Systolic Length (4C) 5.7 cm LV Stroke Volume (4C MOD) 49 ml Atria Name Value Normal LA Dimensions LA Dimension (MM) 3.5 cm 2.7-3.8 LA Volume (4C A-L) 44 ml LA Volume (BP A-L) 51 ml RA Dimensions RA Area (4C) 13.9 cm2 <=18.0 Report Signatures
--- OUTSIDE RECORDS SUMMARY | 2025-01-16 14:33 | XMS_ITS | Clinical Summary ---
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
--- OUTSIDE RECORDS SUMMARY | 2025-01-16 14:33 | XMS_ITS | Clinical Summary ---
Author Organization [facility] Address [address] [place] [address] Phone Care Team Providers Care Railroad Car Cleaning Supervisor Name Role Phone Abbey Lewis MD Primary Care Provider [phone] Allergies No known active allergies Medications IBUPROFEN ORALIndications: Abnormal mammogram Take by mouth. Active Active Problems Patient Care Coordination No te Formatting of this note migh t be different from the original. Primary Care: No primary provider on file. 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 Gender Identity Not on file Sexual Orientation Not on file Last Filed Vital Signs Vital Sign Reading Time Taken Comments Blood Pressure 106/74 06/20/2011 2:01 PM PRODUCE RUNNER Pulse - - Temperature - - Respiratory Rate - - Oxygen Saturation - - Inhaled Oxygen Concentration - - Weight 73.9 kg (163 lb) 11/28/2010 1:57 PM CDT Height 170.2 cm (5' 7) 06/20/2011 2:01 PM PRODUCE RUNNER Body Mass Index 25.53 11/28/2010 1:57 PM CDT Plan of Treatment Health Maintenance Due Date Last Done Comments DTAP/TDAP/TD VACCINES (1 - Tdap) 1986 HEPATITIS B VACCINES (1 of 3 - 19+ 3-dose series) 1986 HPV/Cotest (21-29) 1988 CERVICAL CANCER SCREENING 1997 HPV/Cotest (30-65) 1997 PAP SMEAR 1997 BREAST CANCER SCREENING 11/25/2011 11/25/19 11, 11/11/2010, 02/12/2008 COLORECTAL SCREENING 2012 Colorectal Cancer Screening 2012 FIT-DNA Q 3 years 2012 FIT/FOBT Q 1 year 2012 Flex Sig/CT Colonography Q 5 years 2012 ZOSTER VACCINE (1 of 2) 2017 INFLUENZA VACCINE (#1) 2024 Procedures Procedure Name Priority Date/Time Associated Diagnosis [...] Recently Relevant to Health Maintenance Care Teams Railroad Car Cleaning Supervisor Relationship Specialty Start Date End Date Abbey Lewis MD [address] [place] [id number] PCP - General Family Practice 06/19/11
--- OUTSIDE RECORDS SUMMARY | 2025-01-16 14:33 | XMS_ITS | Encounter Summary ---
Author Organization [facility] Address [address] [place] [id number] Care Team Providers Care Prototype Engineer Manager Name Role Phone Ac Isaac MD Primary Care Provider [phone] Encounter Details Date Type Department Care Team (Late st Contact Info) Description 06/11/2017 Orders Only [facility] Health Information Management [address] [place] [id number] Scanning, Provider Social History Tobacco Use Types Packs/Day Years Used Date Smoking Tobacco: Never Smokeless Tobacco: Never Alcohol Use Standard Drinks/Week Comments No 0 (1 standard drink = 0.6 oz pur e alcohol) Comments Unknown Sex and Gender Information Value Date Recorded Sex Assigned at Not on file 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
--- OUTSIDE RECORDS SUMMARY | 2025-01-16 14:33 | XMS_ITS | Data Portability ---
[facility] Address [address] [place] [address] Care Team Providers [employer] Name Role Phone DYAN ISAAC Primary Care Provider Assessment Encounter Date Assessment Date Assessment LastModified by Organization Details LastModified Time 05/14/2024 05/14/2024 adult health exjohanna seay Blood work. Obtain old records. Find out where she is on screenings and immunizations. Medrol Dosepak usually works for her back we will prescribe that. There is a vague history of some rheumatological issues she did see Dr. Edge at [facility] she was told at 1 time that she may have a connective tissue disease we will see me in 6 months sooner if her back does not get better. Advised to stay up-to-date on screenings and immunizations Not available 05/17/2024 22:13:54 08/14/2024 08/14/2024 We will obtain colonoscopy report send her back to GI get CAT scan and blood work Not available 08/15/2024 21:47:22 12/18/2024 12/18/2024 Obtain her cardiology report echocardiogram to be ordered eating healthy food care instructions follow up 4 month [email or web address] Not available 01/03/2025 17:57:12 Plan of Treatment Reminders Order Date Submit Date Provider Last Modified By Organization Details Last Modified Time Details Appointments ANY 15 2025 03:15P M Dyan Isaac MD Not available Not available Not available Lab CBC w/ auto diff 2024 025 YASMIN [facility], [address], [place], [address], 08/17/2024 09:08:31 CMP, serum or plasma [address] [facility], [address], [place], [address], 08/17/2024 09:08:28 urinalysi s, dipstick, reflex micro [address] [facility], [address], [place], [address], 08/17/2024 09:08:30 CBC w/ auto diff 2024 025 [facility], [address] [place] [address] 2, [place], [address], 05/31/2024 11:11:58 lipid panel, serum 2024 025 [facility], [address] [place] [address], [place], [address], 05/31/2024 11:11:57 CMP, serum or plasma 2024 025 [facility], [address] [place] [address], [place], [address], 05/31/2024 11:11:56 Referral gastroent erologist referral 2024 025 [facility], [address], [address], [place], [address], 10/15/2024 18:59:28 Procedures colonosco py screening (PROC) 2024 025 [facility], [address], [address], [place], [address], 09/10/2024 12:41:02 Surgeries None recorded. Imaging US, echocardi ogram 2024 025 [facility] [address], [place], [address], 01/16/2025 04:22:26 CT, abdomen + pelvis, w/ contrast 2024 025 [facility], [address], [place], [address], 09/05/2024 09:13:42 Medication Orders Medrol (Vinicio) 4 mg tablets in a dose pack 2024 025 [id number], [address], [place], [place], [id number], 05/16/2024 10:36:55 Patient TargetsNo targets recorded. 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 Referring Physician: Dyan Isaac, Internal Medicine, Encounter Date: 08/14/2024 Results Created Date Observation Date Name Description Value Unit Range Abnormal Flag Note LastModifiedBy Organization Detail LastModifiedTime 05/30/1905/31/2024 CMP14 glucose 79 mg/dL 70-99 Not Availabl e [facility] ([facility]) [address] [place], [address], 05/31/2024 11:11:56 05/30/19 25 05/31/2024 CMP14 BUN 11 mg/dL 6-24 Not Available [facility] ([facility]) [address] [place], [address], 05/31/2024 11:11:56 05/30/19 25 05/31/2024 CMP14 creatinine 0.84 mg/dL 0.57-1 .00 Not Available [facility] ([facility]) [address] [place], [address], 05/31/2024 11:11:56 05/30/19 25 05/31/2024 CMP14 eGFR 81 mL/mi n/1.7 3 >59 Not Available [facility] ([facility]) [address] [facility], [place], [address], 05/31/2024 11:11:56 05/30/19 25 05/31/2024 CMP14 BUN/creatini ne ratio 13 9-23 Not Available [facility] ([facility]) [address] [facility], [place], [address], 05/31/2024 11:11:56 05/30/19 25 05/31/2024 CMP14 sodium 139 mmol/ L 134-14 4 Not Available [facility] ([facility]) [address] [place], [address], 05/31/2024 11:11:56 05/30/19 25 05/31/2024 CMP14 potassium 4.5 mmol/ L 3.5-5. 2 Not Available [facility] ([facility]) [address] [place], [address], 05/31/2024 11:11:56 05/30/19 25 05/31/2024 CMP14 chloride 101 mmol/ L 96-106 Not Available [facility] ([facility]) [address] [place], [address], 05/31/2024 11:11:56 05/30/19 25 05/31/2024 CMP14 carbon dioxide, total 27 mmol/ L 20-29 Not Available [facility] ([facility]) [address] [place], [address], 05/31/2024 11:11:56 05/30/19 25 05/31/2024 CMP14 calcium 9.3 mg/dL 8.7-10 .2 Not Available [facility] ([facility]) [address] [place], [address], 05/31/2024 11:11:56 05/30/19 25 05/31/2024 CMP14 protein, total 6.4 g/dL 6.0-8. 5 Not Available [facility] ([facility]) [address] [place], [address], 05/31/2024 11:11:56 05/30/19 25 05/31/2024 CMP14 albumin 4.2 g/dL 3.8-4. 9 Not Available [facility] ([facility]) [address] [place], [address], 05/31/2024 11:11:56 05/30/19 25 05/31/2024 CMP14 globulin, total 2.2 g/dL 1.5-4. 5 Not Available [facility] ([facility]) [address] [place], [address], 05/31/2024 11:11:56 05/30/19 25 05/31/2024 CMP14 bilirubin, total 0.3 mg/dL 0.0-1. 2 Not Available [facility] ([facility]) [address] [place], [address], 05/31/2024 11:11:56 05/30/19 25 05/31/2024 CMP14 alkaline phosphatase 81 IU/L 44-121 Not Available [facility]) [address] [place], [address], 05/31/2024 11:11:56 05/30/19 25 05/31/2024 CMP14 AST (SGOT) 14 IU/L 0-40 Not Avail able [facility] ([facility]) [address] [place], [address], 05/31/2024 11:11:56 05/30/19 25 05/31/2024 CMP14 ALT (SGPT) 21 IU/L 0-32 Not Avail able [facility] ([facility]) [address] [facility], [place], [address], 05/31/2024 11:11:56 05/30/19 25 05/31/2024 LIPID PANEL cholesterol, total 210 mg/dL 100-19 9 above high normal Not Available [facility] ([facility]) [address] [place], [address], 05/31/2024 11:11:57 05/30/19 25 05/31/2024 LIPID PANEL triglyceride s 226 mg/dL 0-149 above high normal Not Available [facility] ([facility]) [address] [place], [address], 05/31/2024 11:11:57 05/30/19 25 05/31/2024 LIPID PANEL HDL cholesterol 37 mg/dL >39 below low normal Not Available [facility] ([facility]) [address] [place], [address], 05/31/2024 11:11:57 05/30/19 25 05/31/2024 LIPID PANEL VLDL cholesterol yannick 41 mg/dL 5-40 above high normal Not Available [facility] ([facility]) [address] [place], [address], 05/31/2024 11:11:57 05/30/19 25 05/31/2024 LIPID PANEL LDL chol calc ([facility]) 132 mg/dL 0-99 above high normal Not Available [facility] ([facility]) [address] [place], [address], 05/31/2024 11:11:57 05/30/19 25 05/31/2024 CBC WITH DIFFE RENTI AL/PL ATELE T WBC 8.6 x10e3 /uL 3.4-10 .8 Not Available [facility] ([facility]) [address] [place], [address], 05/31/2024 11:11:58 05/30/19 25 05/31/2024 CBC WITH DIFFE RENTI AL/PL ATELE T RBC 3.88 x10e6 /uL 3.77-5 .28 Not Available [facility] ([facility]) [address] [facility], [place], [address], 05/31/2024 11:11:58 05/30/19 25 05/31/2024 CBC WITH DIFFE RENTI AL/PL ATELE T hemoglobin 13.4 g/dL 11.1-1 5.9 Not Available [facility] ([facility]) [address] [facility], [place], [address], 05/31/2024 11:11:58 05/30/19 25 05/31/2024 CBC WITH DIFFE RENTI AL/PL ATELE T hematocrit 37.9 % 34.0-4 6.6 Not Available [facility] ([facility]) [address] [facility], [place], [address], 05/31/2024 11:11:58 05/30/19 25 05/31/2024 CBC WITH DIFFE RENTI AL/PL ATELE T MCV 98 fL 79-97 above high normal Not Available [facility] ([facility]) [address] [facility], [place], [address], 05/31/2024 11:11:58 05/30/19 25 05/31/2024 CBC WITH DIFFE RENTI AL/PL ATELE T MCH 34.5 pg 26.6-3 3.0 above high normal Not Available [facility] ([facility]) [address] [place], [address], 05/31/2024 11:11:58 05/30/19 25 05/31/2024 CBC WITH DIFFE RENTI AL/PL ATELE T MCHC 35.4 g/dL 31.5-3 5.7 Not Available [facility] ([facility]) [address] [place], [address], 05/31/2024 11:11:58 05/30/19 25 05/31/2024 CBC WITH DIFFE RENTI AL/PL ATELE T RDW 12.6 % 11.7-1 5.4 Not Available [facility] ([facility]) [address] [facility], [place], [address], 05/31/2024 11:11:58 05/30/19 25 05/31/2024 CBC WITH DIFFE RENTI AL/PL ATELE T platelets 330 x10e3 /uL 150-45 0 Not Available [facility] ([facility]) [address] [facility], [place], [address], 05/31/2024 11:11:58 05/30/19 25 05/31/2024 CBC WITH DIFFE RENTI AL/PL ATELE T neutrophils 39 % notest ab. Not Available [facility] ([facility]) [address] [facility], [place], [address], 05/31/2024 11:11:58 05/30/19 25 05/31/2024 CBC WITH DIFFE RENTI AL/PL ATELE T lymphs 49 % notest ab. Not Available [facility] ([facility]) [address] [facility], [place], [address], 05/31/2024 11:11:58 05/30/19 25 05/31/2024 CBC WITH DIFFE RENTI AL/PL ATELE T monocytes 6 % notest ab. Not Available [facility] ([facility]) [address] [facility], [place], [address], 05/31/2024 11:11:58 05/30/19 25 05/31/2024 CBC WITH DIFFE RENTI AL/PL ATELE T eos 3 % notest ab. Not Available [facility] ([facility]) [address] [facility], [place], [address], 05/31/2024 11:11:58 05/30/19 25 05/31/2024 CBC WITH DIFFE RENTI AL/PL ATELE T basos 1 % notest ab. Not Available [facility] ([facility]) [address] [facility], [place], [address], 05/31/2024 11:11:58 05/30/19 25 05/31/2024 CBC WITH DIFFE RENTI AL/PL ATELE T neutrophils (absolute) 3.4 x10e3 /uL 1.4-7. 0 Not Available [facility] ([facility]) [address] [place], [address], 05/31/2024 11:11:58 05/30/19 25 05/31/2024 CBC WITH DIFFE RENTI AL/PL ATELE T lymphs (absolute) 4.2 x10e3 /uL 0.7-3. 1 above high normal Not Available [facility] ([facility]) [address] [facility], [place], [address], 05/31/2024 11:11:58 05/30/19 25 05/31/2024 CBC WITH DIFFE RENTI AL/PL ATELE T monocytes(ab solute) 0.5 x10e3 /uL 0.1-0. 9 Not Available [facility] ([facility]) [address] [place], [address], 05/31/2024 11:11:58 05/30/19 25 05/31/2024 CBC WITH DIFFE RENTI AL/PL ATELE T eos (absolute) 0.3 x10e3 /uL 0.0-0. 4 Not Available [facility] ([facility]) [address] [place], [address], 05/31/2024 11:11:58 05/30/19 25 05/31/2024 CBC WITH DIFFE RENTI AL/PL ATELE T baso (absolute) 0.1 x10e3 /uL 0.0-0. 2 Not Available [facility] ([facility]) [address] [place], [address], 05/31/2024 11:11:58 05/30/19 25 05/31/2024 CBC WITH DIFFE RENTI AL/PL ATELE T immature granulocytes 2 % notest ab. Not Available [facility] ([facility]) [address] [facility], [place], [address], 05/31/2024 11:11:58 05/30/19 25 05/31/2024 CBC WITH [...] yannick signi fican ce.) Not Available [facility] ([facility]) [address] [facility], [place], [address], 05/31/2024 11:11:58 08/17/19 25 08/17/2024 COMP. METAB OLIC PANEL (14) glucose 103 mg/dL 70-99 above high normal Not Available [facility] ([facility]) [address] [facility], [place], [address], 08/17/2024 09:08:28 08/17/19 25 08/17/2024 COMP. METAB OLIC PANEL (14) BUN 7 mg/dL 6-24 Not Available [facility] ([facility]) [address] [place], [address], 08/17/2024 09:08:28 08/17/19 25 08/17/2024 COMP. METAB OLIC PANEL (14) creatinine 0.92 mg/dL 0.57-1 .00 Not Available [facility] ([facility]) [address] [facility], [place], [address], 08/17/2024 09:08:28 08/17/19 25 08/17/2024 COMP. METAB OLIC PANEL (14) eGFR 73 mL/mi n/1.7 3 >59 Not Available [facility] ([facility]) [address] [facility], [place], [address], 08/17/2024 09:08:28 08/17/19 25 08/17/2024 COMP. METAB OLIC PANEL (14) BUN/creatini ne ratio 8 9-23 below low normal Not Available [facility] ([facility]) [address] [facility], [place], [address], 08/17/2024 09:08:28 08/17/19 25 08/17/2024 COMP. METAB OLIC PANEL (14) sodium 139 mmol/ L 134-14 4 Not Available [facility] ([facility]) [address] [place], [address], 08/17/2024 09:08:28 08/17/19 25 08/17/2024 COMP. METAB OLIC PANEL (14) potassium 4.2 mmol/ L 3.5-5. 2 Not Available [facility] ([facility]) [address] [place], [address], 08/17/2024 09:08:28 08/17/19 25 08/17/2024 COMP. METAB OLIC PANEL (14) chloride 99 mmol/ L 96-106 Not Available [facility] ([facility]) [address] [place], [address], 08/17/2024 09:08:28 08/17/19 25 08/17/2024 COMP. METAB OLIC PANEL (14) carbon dioxide, total 24 mmol/ L 20-29 Not Available [facility] ([facility]) [address] [place], [address], 08/17/2024 09:08:28 08/17/19 25 08/17/2024 COMP. METAB OLIC PANEL (14) calcium 9.7 mg/dL 8.7-10 .2 Not Available [facility] ([facility]) [address] [facility] [place], [address], 08/17/2024 09:08:28 08/17/19 25 08/17/2024 COMP. METAB OLIC PANEL (14) protein, total 6.8 g/dL 6.0-8. 5 Not Available [facility] ([facility]) [address] [facility] [place], [address], 08/17/2024 09:08:28 08/17/19 25 08/17/2024 COMP. METAB OLIC PANEL (14) albumin 4.5 g/dL 3.8-4. 9 Not Available [facility] ([facility]) [address] [facility] [place], [address], 08/17/2024 09:08:28 08/17/19 25 08/17/2024 COMP. METAB OLIC PANEL (14) globulin, total 2.3 g/dL 1.5-4. 5 Not Available [facility] ([facility]) [address] [place], [address], 08/17/2024 09:08:28 08/17/19 25 08/17/2024 COMP. METAB OLIC PANEL (14) bilirubin, total 0.5 mg/dL 0.0-1. 2 Not Available [facility] ([facility]) [address] [place], [address], 08/17/2024 09:08:28 08/17/19 25 08/17/2024 COMP. METAB OLIC PANEL (14) alkaline phosphatase 86 IU/L 44-121 Not Available [facility] ([facility]) [address] [place], [address], 08/17/2024 09:08:28 08/17/19 25 08/17/2024 COMP. METAB OLIC PANEL (14) AST (SGOT) 20 IU/L 0-40 Not Available [facility] ([facility]) [address] [facility], [place], [address], 08/17/2024 09:08:28 08/17/19 25 08/17/2024 COMP. METAB OLIC PANEL (14) ALT (SGPT) 22 IU/L 0-32 Not Available [facility] ([facility]) [address] [facility], [place], [address], 08/17/2024 09:08:28 08/17/19 25 08/17/2024 MICRO SCOPI C EXAMI NATIO N WBC None seen /hpf 0-5 Not Available [facility] ([facility]) [address] [facility], [place], [address], 08/17/2024 09:08:29 08/17/19 25 08/17/2024 MICRO SCOPI C EXAMI NATIO N RBC None seen /hpf 0-2 Not Available [facility] ([facility]) [address] [facility], [place], [address], 08/17/2024 09:08:29 08/17/19 25 08/17/2024 MICRO SCOPI C EXAMI NATIO N epithelial cells (non renal) 0-10 /hpf 0-10 Not Available [facility] ([facility]) [address] [facility], [place], [address], 08/17/2024 09:08:29 08/17/19 25 08/17/2024 MICRO SCOPI C EXAMI NATIO N casts None seen /lpf nonese en Not Available [facility] ([facility]) [address] [facility], [place], [address], 08/17/2024 09:08:29 08/17/19 25 08/17/2024 MICRO SCOPI C EXAMI NATIO N bacteria None seen nonese en/few Not Available [facility] ([facility]) [address] [facility], [place], [address], 08/17/2024 09:08:29 08/17/19 25 08/17/2024 URINA LYSIS , ROUTI NE W/RFX specific gravity 1.007 1.005- 1.030 Not Available [facility] ([facility]) [address] [place], [address], 08/17/2024 09:08:30 08/17/19 25 08/17/2024 URINA LYSIS , ROUTI NE W/RFX pH 7.0 5.0-7. 5 Not Available [facility] ([facility]) [address] [place], [address], 08/17/2024 09:08:30 08/17/19 25 08/17/2024 URINA LYSIS , ROUTI NE W/RFX urine-color YELLOW yellow Not Available [facility] ([facility]) [address] [place], [address], 08/17/2024 09:08:30 08/17/19 25 08/17/2024 URINA LYSIS , ROUTI NE W/RFX appearance CLEAR clear Not Available [facility] ([facility]) [address] [place], [address], 08/17/2024 09:08:30 08/17/19 25 08/17/2024 URINA LYSIS , ROUTI NE W/RFX WBC esterase TRACE negati ve abnormal Not Available [facility] ([facility]) [address] [place], [address], 08/17/2024 09:08:30 08/17/19 25 08/17/2024 URINA LYSIS , ROUTI NE W/RFX protein NEGATI VE negati ve/tra ce Not Available [facility] ([facility]) [address] [place], [address], 08/17/2024 09:08:30 08/17/19 25 08/17/2024 URINA LYSIS , ROUTI NE W/RFX glucose NEGATI VE negati ve Not Available [facility] ([facility]) [address] [place], [address], 08/17/2024 09:08:30 08/17/19 25 08/17/2024 URINA LYSIS , ROUTI NE W/RFX ketones NEGATI VE negati ve Not Available [facility] ([facility]) [address] [place], [address], 08/17/2024 09:08:30 08/17/19 25 08/17/2024 URINA LYSIS , ROUTI NE W/RFX occult blood NEGATI VE negati ve Not Available [facility] ([facility]) [address] [place], [address], 08/17/2024 09:08:30 08/17/19 25 08/17/2024 URINA LYSIS , ROUTI NE W/RFX bilirubin NEGATI VE negati ve Not Available [facility] ([facility]) [address] [place], [address], 08/17/2024 09:08:30 08/17/19 25 08/17/2024 URINA LYSIS , ROUTI NE W/RFX urobilinogen ,semi-qn 0.2 mg/dL 0.2-1. 0 Not Available [facility] ([facility]) [address] [place], [address], 08/17/2024 09:08:30 08/17/19 25 08/17/2024 URINA LYSIS , ROUTI NE W/RFX nitrite, urine NEGATI VE negati ve Not Available [facility] ([facility]) [address] [place], [address], 08/17/2024 09:08:30 08/17/19 25 08/17/2024 URINA LYSIS , ROUTI NE W/RFX microscopic examination SEE BELOW: Micro scopi c was indic ated and was perfo rmed. Not Available [facility] ([facility]) [address] [facility], [place], [address], 08/17/2024 09:08:30 08/17/1908/17/2024 CBC WITH DIFFE RENTI AL/PL ATELE T WBC 7.0 x10e3 /uL 3.4-10 .8 Not Available [facility] ([facility]) [address] [facility], [place], [address], 08/17/2024 09:08:31 08/17/1908/17/2024 CBC WITH DIFFE RENTI AL/PL ATELE T RBC 4.07 x10e6 /uL 3.77-5 .28 Not Available [facility] ([facility]) [address] [facility], [place], [address], 08/17/2024 09:08:31 08/17/1908/17/2024 CBC WITH DIFFE RENTI AL/PL ATELE T hemoglobin 13.8 g/dL 11.1-1 5.9 Not Available [facility] ([facility]) [address] [place], [address], 08/17/2024 09:08:31 08/17/1908/17/2024 CBC WITH DIFFE RENTI AL/PL ATELE T hematocrit 40.8 % 34.0-4 6.6 Not Available [facility] ([facility]) [address] [place], [address], 08/17/2024 09:08:31 08/17/1908/17/2024 CBC WITH DIFFE RENTI AL/PL ATELE T MCV 100 fL 79-97 above high normal Not Available [facility] ([facility]) [address] [place], [address], 08/17/2024 09:08:31 08/17/19 25 08/17/2024 CBC WITH DIFFE RENTI AL/PL ATELE T MCH 33.9 pg 26.6-3 3.0 above high normal Not Available [facility] ([facility]) [address] [facility], [place], [address], 08/17/2024 09:08:31 08/17/1908/17/2024 CBC WITH DIFFE RENTI AL/PL ATELE T MCHC 33.8 g/dL 31.5-3 5.7 Not Available [facility] ([facility]) [address] [facility], [place], [address], 08/17/2024 09:08:31 08/17/1908/17/2024 CBC WITH DIFFE RENTI AL/PL ATELE T RDW 12.0 % 11.7-1 5.4 Not Available [facility] ([facility]) [address] [place], [address], 08/17/2024 09:08:31 08/17/1908/17/2024 CBC WITH DIFFE RENTI AL/PL ATELE T platelets 254 x10e3 /uL 150-45 0 Not Available [facility] ([facility]) [address] [place], [address], 08/17/2024 09:08:31 08/17/1908/17/2024 CBC WITH DIFFE RENTI AL/PL ATELE T neutrophils 46 % notest ab. Not Available [facility] ([facility]) [address] [place], [address], 08/17/2024 09:08:31 08/17/1908/17/2024 CBC WITH DIFFE RENTI AL/PL ATELE T lymphs 41 % notest ab. Not Available [facility] ([facility]) [address] [place], [address], 08/17/2024 09:08:31 08/17/1908/17/2024 CBC WITH DIFFE RENTI AL/PL ATELE T monocytes 6 % notest ab. Not Available [facility] ([facility]) [address] [place], [address], 08/17/2024 09:08:31 08/17/1908/17/2024 CBC WITH DIFFE RENTI AL/PL ATELE T eos 6 % notest ab. Not Available [facility] ([facility]) [address] [facility], [place], [address], 08/17/2024 09:08:31 08/17/1908/17/2024 CBC WITH DIFFE RENTI AL/PL ATELE T basos 1 % notest ab. Not Available [facility] ([facility]) [address] [facility], [place], [address], 08/17/2024 09:08:31 08/17/1908/17/2024 CBC WITH DIFFE RENTI AL/PL ATELE T neutrophils (absolute) 3.2 x10e3 /uL 1.4-7. 0 Not Available [facility] ([facility]) [address] [facility], [place], [address], 08/17/2024 09:08:31 08/17/1908/17/2024 CBC WITH DIFFE RENTI AL/PL ATELE T lymphs (absolute) 2.9 x10e3 /uL 0.7-3. 1 Not Available [facility] ([facility]) [address] [facility], [place], [address], 08/17/2024 09:08:31 08/17/1908/17/2024 CBC WITH DIFFE RENTI AL/PL ATELE T monocytes(ab solute) 0.4 x10e3 /uL 0.1-0. 9 Not Available [facility] ([facility]) [address] [facility], [place], [address], 08/17/2024 09:08:31 08/17/1908/17/2024 CBC WITH DIFFE RENTI AL/PL ATELE T eos (absolute) 0.4 x10e3 /uL 0.0-0. 4 Not Available [facility] ([facility]) [address] [facility], [place], [address], 08/17/2024 09:08:31 08/17/19 25 08/17/2024 CBC WITH DIFFE RENTI AL/PL ATELE T baso (absolute) 0.1 x10e3 /uL 0.0-0. 2 Not Available [facility] ([facility]) [address] [facility], [place], [address], 08/17/2024 09:08:31 08/17/19 25 08/17/2024 CBC WITH DIFFE RENTI AL/PL ATELE T immature granulocytes 0 % notest ab. Not Available [facility] ([facility]) [address] [facility], [place], [address], 08/17/2024 09:08:31 08/17/19 25 08/17/2024 CBC WITH DIFFE RENTI AL/PL ATELE T immature grans (abs) 0.0 x10e3 /uL 0.0-0. 1 Not Available [facility] ([facility] [address] [facility] [facility], [place], [address], 08/17/2024 09:08:31 09/04/19 25 09/02/2024 CT, abdom en + pelvi s, w/ contr ast No observ ation record ed. [facility] [address], [place], [address], 09/24/2024 10:46:20 12/24/19 25 02/01/2023 MAMMO , scree polina, digit al, bilat eral No observ ation record ed. [email or web address] Not Available 2024 11:03:44 Result Notes None recorded. Problems Name Problem SNOMED Code Status Onset Date Resolution Date Notes Provider Name and Address Organization Details Recorded Time Low back pain 926330197 Active 2024 Debbie Fung MA null, [place] - [facility] 15:22:27 Adult health examination Active 2024 Debbie Fung MA null, [facility] 15:22:28 Pure hypercholester olemia 742558335 Active 2024 Dyan Isaac MD Attn: Reyes diaz,[address] [facility], [place], [address], [facility] 17:57:36 Heart murmur 24504896 Active 2024 Dyan Isaac MD Attn: Reyes diaz,[address] [facility], [place], [address], [facility] 17:57:38 Problem Notes None recorded. Procedures Surgical History Date Name Laterality Status Provider Name and Address Organization Details Recorded Time Total hysterectomy completed Missy Tello MA [facility] 05/14/2024 13:00:44 Appendectomy completed Missy Tello MA [facility] 05/14/2024 13:00:48 partial hysterectomy completed Missy Tello MA [facility] 05/14/2024 13:01:01 Imaging Results None recorded. Procedure Notes None recorded. Medical Equipment None Reported. Medications Name Sig Start Date Stop Date Status Note LastModified by Organization Details LastModified Time Medrol (Vinicio) 4 mg tablets in a dose pack Take 1 dose pk by oral route as directed . 05/16 completed Not Available Not Available Not Available amitriptylin e 10 mg tablet TAKE 3 TABLETS BY MOUTH EVERY DAY AT BEDTIME active Not Available Not Available No t Available Valtrex 500 mg tablet Take 1 tablet twice a day by oral route for 7 days. 05/16 completed Not Available Not Available Not Available Vitals Date Recorded Body height Body mass index (BMI) Body weight Heart rate Oxygen saturation Oxygen saturation in Arterial blood by Pulse oximetry Systolic And Diastolic Provider Name and Address Organization Details Last Updated DateTime 170.18 cm 23.3 kg/m2 59217.8 3 g 90 /min 96 % 96 % 130/68 mm[Hg] Missy Tello MA [facility] 13:06:24 Date Recorded Body height Body mass index (BMI) Body weight Heart rate Oxygen saturation Oxygen saturation in Arterial blood by Pulse oximetry Systolic And Diastolic Provider Name and Address Organization Details Last Updated DateTime 5 170.18 cm 22.8 kg/m2 39070.6 9 g 78 /min 99 % 99 % 120/68 mm[Hg] Missy Tello MA [place] - [facility] 5 09:54:37 Date Recorded Body height Body mass index (BMI) Body weight Heart rate Oxygen saturation Oxygen saturation in Arterial blood by Pulse oximetry Systolic And Diastolic Provider Name and Address Organization Details Last Updated DateTime 5 170.18 cm 24.8 kg/m2 63759.3 9 g 79 /min 98 % 98 % 124/68 mm[Hg] Missy Tello MA [facility] 5 10:14:31 Social History Question Answer Notes LastModified by [employer] ion Details LastModified Time Tobacco Smoking Status Former Smoker Missy Tello MA null, [facility] 05/14/2024 12:59:59 Do You Have An Advance Directive? No Information n ot available 05/14/2024 Are You Blind Or Do [...] Date Of Your Most Recent Tobacco Screening? 12/18/2024 Information not available 12/18/2024 What Is Your Current Pack Years? 10packyears [...] PPW Information not available 05/14/2024 Do You Use Sunscreen Routinely? Yes Information not available 05/14/2024 Has Tobacco Cessation Counseling Been Provided? No Information not available 05/14/2024 How Many Years Have You Smoked Tobacco? 10 Information not available 05/14/2024 Sex: Female Functional Status Question Answer Note LastModified by [employer] ion Details LastModified Time Do you use any illicit or recreational drugs? No Information not available 05/14/2024 Do you or have you ever used any other forms of tobacco or nicotine? No Information not available 05/14/2024 What is your level of alcohol consumption? None Information not available 05/14/2024 Are you currently employed? No Information not available 05/14/2024 Are you able to care for yourself independently? Yes Information not available 05/14/2024 What is your exercise level? None Information not available 05/14/2024 Mental Status Question Answer Note LastModified by Organization D etails LastModified Time Do you feel stressed (tense, restless, nervous, or anxious, or unable to sleep at night)? [id number] Information not available 05/14/2024 Family History Relationship Description Onset Age of this Age Resolved Age Notes LastModified by Organization Details LastModified Time Father Harmful pattern of use of alcohol mebyma Not available 2024 12:56:15 Father Coronary [...] Not available 2024 12:57:41 Paternal Aunt Malignant neoplasm of breast mebyma Not available 2024 12:58:43 Daughter Migraine mebyma Not available 05/14/2024 12:59:07 Medical History Condition Response Coronary Artery Disease N High Blood Pressure N Atrial Fibrillation N Kidney or Bladder Problems N Thyroid Problems N GI Problems N Depression N COPD N Blood Clots N Have you had a mammogram in the last yea r? N Skin Problems N Anemia N Heart Attack (MS) N Anxiety Disorder N Diabetes N Muscle, Joint, or Bone Problems Y Seizures/Epilepsy N Have you had a colonoscopy in the last 1 0 years? N Acid Reflux (GERD) N Cancer N Stroke N Asthma N Allergies N High Cholesterol N Hepatitis N Liver Disease N Headaches Y Heart Failure N Osteoporosis N Gynecological HistoryNo gynecological history recorded. Obstetrics History GPAL:G 0 P 0 0 0 0 Immunizations Vaccine Type Date Status Note Provider Nam e and Address Organization Details Recorded Time Influenza, split virus, quadrivalent, PF 02/05/2020 completed Not Available [facility] 10:00:05 COVID-19, mRNA, LNP-S, PF, 100 mcg/0.5mL dose or 50 mcg/0.25mL dose 05/29/2020 completed Not Available [facility] 10:00:05 COVID-19, mRNA, LNP-S, PF, 100 mcg/0.5mL dose or 50 mcg/0.25mL dose 06/26/2020 completed Not Available [facility] 10:00:05 COVID-19, mRNA, LNP-S, PF, 100 mcg/0.5mL dose or 50 mcg/0.25mL dose 04/22/2021 completed Not Available [facility] 10:00:05 Tdap 11/23/2022 completed Not Available [facility] 12/18/2024 10:00:05 Past Encounters Encounter ID Performer Location Encounter Start Date Encounter Closed Date Diagnosis/Indication Diagnosis SNOMED-CT Code Diagnosis ICD10 Code Diagnosis IMO Codes Diagnosis Note [id number] Dyan Isaac MD [facility] (Adult Med) [address] [place] [address] 05/14/2024 12:22:42 05/14/2024 13:30:28 Body mass index 20-24 - normal 416550387 Z68.23 Adult [facility] th examination 110578332 Z00.00 Low back pain 177725802 M54.50 Screening for malignant neoplasm of colon 968832458 Z12.11 [id number] Dyan Isaac MD [facility] [employer] [facility] [place] [address] [place] [phone] 08/14/2024 09:44:49 08/14/2024 11:02:55 Normal weight 66074525 Z68.22 [id number] Overweight 033225530 E66 .3 Abdominal pain 24086058 R10.9 [id number] Dyan Isaac MD [facility] [employer] [facility] [place] [address] [place] [phone] 12/18/2024 09:58:02 12/18/2024 11:58:40 Normal weight 19435869 Z68.24 [id number] BMI 24.8 Heart murmur 80443021 R0 1.1 45491 Low back pain 009804619 M54.50 Pure hypercholesterolemia 228930094 E78.00 16549 Health Concerns Section Related Observation LastModified by Organization Detai ls LastModified Time None Recorded Concern Status LastModified by Organization Details LastModified Time None Recorded Advance Directives Directive N: Payers Insurance Date Sequence Insurance Name Policy Number Policy Dumont Covered Member ID Dumont Member ID Guarantor Name 01/05/2025 1 Laya [id number] Ted Andre [id number] Terrie Andre Notes Date Note Type Note Provider Name and Address Organization Details Recorded Time 05/14/2024 text/html reestablishing care back pain flare-up again meds none allergies none surgeries. Hysterectomy with both ovaries taken out appendectomy family history heart disease hypertension diabetes paternal aunt with breast cancer Dyan Isaac MD Attn: [address] [place], [address], [facility] 05/17/2024 22:14:18 08/14/2024 text/html MAW 2Reported by Patient Crampy abdominal pain sometimes related to food sometimes not related to food she is not having any blood in her stool she is not having any genitourinary complaints no fever no chills no nausea no vomiting Dyan Isaac MD Attn: [address] [place], [address], [facility] 08/15/2024 21:47:53 12/18/2024 text/html IBS abdominal pain appears to be stable her low back pain no flare-ups at this time heart murmur asymptomatic Dyan Isaac MD Attn: [address] [place], [address], [facility] 01/03/2025 17:58:22 OBGyn Episode No OBEpisode recorded.
== END 2025-01-16 14:31 | disposition home or self-care (01) ==
LOC: ANHCARD 14:31
PROVIDERS: PCP Obstetrics & Gynecology; Visit Provider Internal Medicine
DX: R01.1 Cardiac murmur, unspecified (principal)
CPT/HCPCS: 93306